=== PATIENT | male | born 1965 | race Caucasian/White ===

== ENCOUNTER 2020-11-27 16:16 | Observation (INO) ==
[2020-11-27 17:19] LABS: Basophils # 0.1 K/mcL (0.0-0.2); Basophils % 0.9 %; Hematocrit 44.4 % (37.5-50.1); Hemoglobin 16.1 g/dL (12.9-16.9); Immature Granulocytes % 0.6 % (0-4); Lymphocytes # 1.5 K/mcL (0.6-4.6); Lymphocytes % 19.3 %; Mean Corpuscular HGB Conc 36.3 g/dL (31.6-35.5); Mean Corpuscular Hemoglobin 34.7 pg (28.0-33.3); Mean Corpuscular Volume 95.7 fL (83.0-100.0); Mean Platelet Volume 9.8 fL (9.4-12.4); Monocytes # 0.5 K/mcL (0.0-1.3); Neutrophils # 5.9 K/mcL (1.6-8.9); Platelet Count 233 K/mcL (140-400); Red Blood Count 4.64 M/mcL (4.19-5.50); Red Cell Distribution Width 10.8 % (11.5-14.5); Segmented Neutrophils % 73.2 %
[2020-11-27 17:41] LABS: BUN/Creatinine Ratio 17 (6-26); Blood Urea Nitrogen 14 mg/dL (6-20); Calcium 9.6 mg/dL (8.6-10.3); Carbon Dioxide 25 mEq/L (23-29); Chloride 102 mEq/L (98-107); Glucose 291 mg/dL (70-105); Osmolality,Calculated 293 (280-300); Potassium 4.1 mEq/L (3.5-5.1); Sodium 136 mEq/L (136-145); Troponin I < 0.03 ng/mL (< 0.04); eGFR For African Americans > 60 (> 60); eGFR For Non-African Americans > 60 (> 60)
[2020-11-27] MEDS ORDERED: Aspirin 325 MG TABLET PO ONE (18:44)
[2020-11-27] MEDS ORDERED: Naloxone 0.4 MG/ML INJ IVP PRN (19:20)
[2020-11-27] MEDS ORDERED: Ondansetron 4 MG/2 ML VIAL IVP PRN (19:20)
[2020-11-27] MEDS ORDERED: *HR* Dextrose 50 % in Water (Vial) 50 ML VIAL IVP PRN (20:34)
[2020-11-27] MEDS ORDERED: D5% in Water 1,000 ML IVC PRN (20:34)
[2020-11-27] MEDS ORDERED: Dextrose Gel 15 GM/37.5 ML TUBE PO PRN ×2 (20:34)
[2020-11-27] MEDS ORDERED: Acetaminophen 325 MG TABLET PO ONE (20:59)
[2020-11-27] MEDS ORDERED: Insulin LISPRO 300 UNITS/3 ML VIAL SUBQ SCH (21:00)
[2020-11-27] MEDS ORDERED: Nitroglycerin 0.4 MG TAB.SUBL SL PRN (21:04)
[2020-11-27] MEDS: *HR* Heparin 5,000 UNIT/ML VIAL SQ SCH (21:47)
[2020-11-27] MEDS: Insulin LISPRO 300 UNITS/3 ML VIAL SUBQ SCH (23:59)
[2020-11-28 03:25] LABS: Hematocrit 42.1 % (37.5-50.1); Hemoglobin 15.1 g/dL (12.9-16.9); Mean Corpuscular HGB Conc 35.9 g/dL (31.6-35.5); Mean Corpuscular Hemoglobin 34.3 pg (28.0-33.3); Mean Corpuscular Volume 95.7 fL (83.0-100.0); Mean Platelet Volume 9.6 fL (9.4-12.4); Platelet Count 203 K/mcL (140-400); Red Cell Distribution Width 10.8 % (11.5-14.5); White Blood Count 9.8 K/mcL (4.3-11.1)
[2020-11-28 03:48] LABS: Troponin I < 0.03 ng/mL (< 0.04)
[2020-11-28 03:50] LABS: BUN/Creatinine Ratio 16 (6-26); Blood Urea Nitrogen 12 mg/dL (6-20); Calcium 9.2 mg/dL (8.6-10.3); Carbon Dioxide 25 mEq/L (23-29); Chloride 106 mEq/L (98-107); Chol/HDL Ratio 3.9 (0-4.9); Cholesterol 165 mg/dL (< 200); Glucose 175 mg/dL (70-105); HDL Cholesterol 42 mg/dL (40-59); LDL Cholesterol,Calculated 97 mg/dL (< 100); Osmolality,Calculated 294 (280-300); Potassium 3.5 mEq/L (3.5-5.1); Sodium 140 mEq/L (136-145); Triglycerides 129 mg/dL (< 150); eGFR For African Americans > 60 (> 60); eGFR For Non-African Americans > 60 (> 60)
[2020-11-28 04:01] LABS: Thyroid Stimulating Hormone 1.832 mcIU/mL (0.340-5.600)
[2020-11-28] MEDS: *HR* Heparin 5,000 UNIT/ML VIAL SQ SCH ×2 (05:50→12:10)
[2020-11-28] MEDS: Insulin LISPRO 300 UNITS/3 ML VIAL SUBQ SCH ×4 (05:50→12:09)
[2020-11-28] MEDS ORDERED: Regadenoson 0.4 MG/5 ML SYRINGE IVP ONE (06:08)
[2020-11-28] MEDS ORDERED: Aspirin Enteric Coated 81 MG Tablet PO SCH (09:00)
[2020-11-28] MEDS ORDERED: predniSONE 10 MG TABLET PO SCH (09:00)
[2020-11-28] MEDS ORDERED: lisinopriL 20 MG TABLET PO SCH (09:00)
[2020-11-28 09:57] LABS: Estimated Average Glucose 143 mg/dl; Hemoglobin A1C 6.6 %
[2020-11-28 11:09] VITALS: BP 121/74
== END 2020-11-28 14:59 | disposition home or self-care (01) ==
LOC: 3BNU 16:16 → EMEROOARM 16:16 → SUATTDRO 19:39 → 3BNU 20:33
PROVIDERS: ADMIT Internal Medicine; ATTEND Internal Medicine